=== PATIENT | female | born 1990 | race Caucasian/White ===

== ENCOUNTER 2024-06-03 14:22 | Emergency (ER) | payer OTHER ==
[2024-06-03] MEDS ORDERED: Ketorolac Tromethamine 30 MG (1 mL) VIAL ONE (15:41)
[2024-06-03] MEDS ORDERED: Acetaminophen 500 MG TAB ONE (15:41)
== END 2024-06-03 16:44 | disposition home or self-care (01) ==
LOC: MADERS 14:22
DX: S63.92XA Sprain of unspecified part of left wrist and hand, initial encounter (principal); S50.811A Abrasion of right forearm, initial encounter; J00 Acute nasopharyngitis [common cold]; I10 Essential (primary) hypertension; V89.2XXA Person injured in unspecified motor-vehicle accident, traffic, initial encounter
CPT/HCPCS: 71045; 96374; G0390; J1885